=== PATIENT | female | born 1930 | race Two or more races ===

== ENCOUNTER 2017-03-06 06:16 | Inpatient (IN) | payer MEDICARE ==
[~2017-03-06] VITALS: Ht 154.9 cm; Wt 80.2 kg
[2017-03-06] MEDS ORDERED: SODIUM CHLORIDE 0.9% 1,000 ML IV ONE (06:40)
[2017-03-06] MEDS ORDERED: SODIUM CHLORIDE FLUSH 10ML SYR IVF ONE (07:00)
[2017-03-06] MEDS ORDERED: ONDANSETRON 2MG/ML, 2ML IVPush ONE (07:00)
[2017-03-06] MEDS ORDERED: HYDROmorphone 1 MG/ML, 1ML IVPush PRN (07:00)
[2017-03-06] MEDS ORDERED: SODIUM CHLORIDE 0.9% 1,000ML IVBOLUS ONE (07:00)
[2017-03-06] MEDS ORDERED: ONDANSETRON 2MG/ML, 2ML ONE ×2 (07:11→18:11)
[2017-03-06] MEDS ORDERED: HYDROmorphone 1 MG/ML, 1ML ONE (07:11)
[2017-03-06 07:12] LABS: HEMOGLOBIN 16.7 g/dL (11.7-16.4); WHITE BLOOD COUNT 6.9 x10^3/uL (3.4-10)
[2017-03-06 07:23] LABS: ASPARTATE AMINO TRANSFERASE 20 U/L (15-37); BLOOD UREA NITROGEN 34 mg/dL (7-18); IS PT STATUS REG ER OR PRE ER? YES
[2017-03-06] MEDS ORDERED: OMNIPAQUE 350 MG/ML, 100ML BOTTLE ONE (07:58)
[2017-03-06] MEDS ORDERED: OMEP20TA62 PO (08:09)
[2017-03-06] MEDS ORDERED: LOSA25TA5 PO (08:09)
[2017-03-06] MEDS ORDERED: ATEN100T PO (08:09)
[2017-03-06] MEDS ORDERED: ONDANSETRON 2MG/ML, 2ML IVPush PRN ×2 (10:00→19:00)
[2017-03-06] MEDS ORDERED: LABETALOL 5MG/ML, 20ML IVPush PRN (10:00)
[2017-03-06 11:02] VITALS: BP 126/49
[2017-03-06] MEDS: D5%-0.45NACL+KCL 20MEQ 1,000 ML IV SCH ×2 (12:25→23:15)
[2017-03-06] MEDS: morphine SULFATE 10 MG/ML, 1ML IVPush PRN ×2 (13:23→23:23)
[2017-03-06 15:26] VITALS: BP 127/79
[2017-03-06] MEDS ORDERED: MIDAZOLAM 1 MG/ML, 2ML ONE (18:03)
[2017-03-06] MEDS ORDERED: ROCURONIUM 10 MG/ML,10ML ONE (18:05)
[2017-03-06] MEDS ORDERED: SUFentanil 50 MCG/ML, 1ML ONE (18:05)
[2017-03-06] MEDS ORDERED: PROMETHAZINE 25 MG/ML, 1ML ONE (18:07)
[2017-03-06] MEDS ORDERED: ROCURONIUM 10MG/ML,5ML ONE (18:11)
[2017-03-06] MEDS ORDERED: NEOSTIGMINE 1 MG/ML, 10ML ONE (18:11)
[2017-03-06] MEDS ORDERED: PROPOFOL 10 MG/ML, 20ML ONE (18:11)
[2017-03-06] MEDS ORDERED: CEFOTETAN 2 GM ONE (18:11)
[2017-03-06] MEDS ORDERED: DEXAMETHASONE 4 MG/ML, 1ML ONE ×2 (18:11→18:23)
[2017-03-06] MEDS ORDERED: LIDOCAINE-MPF 2% ,5ML ONE (18:11)
[2017-03-06] MEDS ORDERED: EPINEPHRINE 1 MG/ML, 1ML ONE (18:18)
[2017-03-06] MEDS ORDERED: BUPIVACAINE/PF 0.5% ONE (18:18)
[2017-03-06] MEDS ORDERED: BUPIVACAINE/PF-EPI 0.5% 1:200K IM ONE (18:40)
[2017-03-06] MEDS ORDERED: HYDROmorphone 1 MG/ML, 1ML IV PRN (19:00)
[2017-03-06] MEDS ORDERED: ACETAMINOPHEN 325 MG TABLET PO PRN (19:00)
[2017-03-06] MEDS ORDERED: METOCLOPRAMIDE 5 MG/ML, 2ML IV PRN (19:00)
[2017-03-06] MEDS ORDERED: MEPERIDINE/PF 25MG/0.5ML IVPush PRN (19:00)
[2017-03-06] MEDS ORDERED: FENTANYL PF 100 MCG/2ML IV PRN (19:00)
[2017-03-06] MEDS ORDERED: LABETALOL 5MG/ML, 20ML IV PRN (19:00)
[2017-03-06] MEDS ORDERED: OXYcodone 5 MG/5 ML ORAL.SOL UDC PO PRN (19:00)
[2017-03-06] MEDS ORDERED: hydrALAzine 20 MG/ML, 1ML IV PRN (19:00)
[2017-03-06] MEDS: morphine SULFATE 10 MG/ML, 1ML IV PRN ×5 (20:28→21:50)
[2017-03-06 20:33] LABS: CYTOLOGY BODY FLUID RECD INTO PATHOLOGY; CYTOLOGY BODY FLUID SOURCE PERITONEAL FLUID
[2017-03-06] MEDS ORDERED: morphine SULFATE 10 MG/ML, 1ML ONE (20:34)
[2017-03-06] MEDS ORDERED: ADENOSINE 6 MG/2 ML ONE (20:37)
[2017-03-06] MEDS ORDERED: HALOPERIDOL 5 MG/ML ONE (20:40)
[2017-03-06 21:50] VITALS: BP 114/76
[2017-03-06 21:59] VITALS: BP 114/76
[2017-03-07 01:23] VITALS: BP_SYST 107; BP_SYST 128; BP_DIAS 67; BP_DIAS 75
[2017-03-07] MEDS: morphine SULFATE 10 MG/ML, 1ML IVPush PRN (03:29)
[2017-03-07 05:18] LABS: HEMATOCRIT 43.6 % (34.6-47.8); HEMOGLOBIN 14.3 g/dL (11.7-16.4); WHITE BLOOD COUNT 7.8 x10^3/uL (3.4-10)
[2017-03-07 05:19] LABS: BLOOD UREA NITROGEN 22 mg/dL (7-18)
[2017-03-07 05:22] LABS: ASPARTATE AMINO TRANSFERASE 22 U/L (15-37)
[2017-03-07 07:47] VITALS: BP 117/83
[2017-03-07] MEDS: morphine SULFATE 10 MG/ML, 1ML IV PRN ×3 (09:05→18:29)
[2017-03-07 12:45] VITALS: BP 128/81
[2017-03-07] MEDS: SODIUM CHLORIDE 0.9% 1,000 ML IV SCH (15:42)
[2017-03-07 20:58] VITALS: BP 133/85
[2017-03-08] MEDS: morphine SULFATE 10 MG/ML, 1ML IV PRN (00:07)
[2017-03-08 02:15] VITALS: BP 135/77
[2017-03-08 04:54] LABS: HEMATOCRIT 37.8 % (34.6-47.8); HEMOGLOBIN 12.6 g/dL (11.7-16.4); WHITE BLOOD COUNT 6.7 x10^3/uL (3.4-10)
[2017-03-08 05:01] LABS: BLOOD UREA NITROGEN 21 mg/dL (7-18)
[2017-03-08] MEDS: SODIUM CHLORIDE 0.9% 1,000 ML IV SCH ×2 (05:35→19:57)
[2017-03-08 06:40] VITALS: BP 128/75
[2017-03-08] MEDS: ATENOLOL 100 MG TABLET PO SCH (10:10)
[2017-03-08] MEDS: ACETAMINOPHEN 325 MG TABLET PO SCH ×3 (10:10→20:32)
[2017-03-08 12:15] VITALS: BP 114/69
[2017-03-08 20:30] VITALS: BP 153/78
[2017-03-09] MEDS: ACETAMINOPHEN 325 MG TABLET PO SCH ×2 (02:43→10:03)
[2017-03-09] MEDS ORDERED: PNEUMOCOCCAL 23 VACCINE IM-VACC ONE (03:00)
[2017-03-09] MEDS ORDERED: FLU VACC QS2017-18 (36MOS+) UP/PF 0.5 ML IM-VACC ONE (03:30)
[2017-03-09 04:16] VITALS: BP 143/76
[2017-03-09] MEDS: ATENOLOL 100 MG TABLET PO SCH (07:15)
[2017-03-09] MEDS: SODIUM CHLORIDE 0.9% 1,000 ML IV SCH (07:17)
[2017-03-09 07:44] VITALS: BP 133/74
[2017-03-09 12:52] VITALS: BP 127/69
[2017-03-09] MEDS ORDERED: ACET-1600 PO (13:58)
[2017-03-09] MEDS ORDERED: OXYC5CAP2 PO (13:58)
== END 2017-03-09 15:16 | disposition home or self-care (01) | DRG 356 ==
LOC: ED 07:02 → EDIP 09:21 → 4NOR 10:49 → 5SO 22:07 → 4NOR 03-08 23:50 → DCLOUNGE 03-09 14:55
PROVIDERS: ADMIT Internal Medicine; ATTEND Internal Medicine
PROC: 0UB00ZZ Excision of Right Ovary, Open Approach (ICD-10-PCS; 2017-03-06)
PROC: 0WJG4ZZ Inspection of Peritoneal Cavity, Percutaneous Endoscopic Approach (ICD-10-PCS; 2017-03-06)
PROC: 0DBU0ZX Excision of Omentum, Open Approach, Diagnostic (ICD-10-PCS; principal; 2017-03-06 17:30)
DX: K56.52 Intestinal adhesions [bands] with complete obstruction (principal); N17.0 Acute kidney failure with tubular necrosis; E87.2 Acidosis; R18.8 Other ascites; E87.1 Hypo-osmolality and hyponatremia; E86.0 Dehydration; R73.9 Hyperglycemia, unspecified; I11.9 Hypertensive heart disease without heart failure; K21.9 Gastro-esophageal reflux disease without esophagitis; K44.9 Diaphragmatic hernia without obstruction or gangrene; Z96.653 Presence of artificial knee joint, bilateral; K80.20 Calculus of gallbladder without cholecystitis without obstruction; Z82.49 Family history of ischemic heart disease and other diseases of the circulatory system; Z83.3 Family history of diabetes mellitus; Z94.7 Corneal transplant status
CPT/HCPCS: 36415; 74000; 74177; 76700; 80048; 80053; 81003; 82247; 82248; 83605; 83690; 84484; 85025; 86850; 86900; 86923; 87070; 87075; 87205; 88112; 88305; 90686; 90732; 93005; 96361; 96374; 96375; J0171; J1100; J1170; J2250; J2405; J2704; J2710; J3490; Q9967; J2270; J3480; J7030; S0074

== ENCOUNTER → 2019-12-15 | Outpatient (CLI) | payer MEDICARE ==
[~2019-12-15] MED LIST: ACET-1600 PO; ATEN100T PO; LOSA25TA25 PO; OMEP20TA62 PO; OXYC5CAP2 PO
[2019-12-15 09:28] LABS: ALBUMIN 3.7 g/dL (3.4-5.0); ANION GAP 9 mmol/L (5-15); CALCIUM 8.8 mg/dL (8.5-10.1); CHLORIDE 109 mmol/L (98-107)
[2019-12-15 09:53] LABS: ALANINE AMINOTRANSFERASE 16 U/L (12-78); ALKALINE PHOSPHATASE 87 U/L (45-117); BILIRUBIN,TOTAL 0.7 mg/dL (0.2-1.0); CREATININE 0.95 mg/dL (0.55-1.02); FOLATE LEVEL 17.2 ng/mL (3.1-17.5); FREE T4 (FREE THYROXINE) 1.18 ng/dL (0.76-1.46); TOTAL PROTEIN 7.3 g/dL (6.4-8.2)
[2019-12-15 10:15] LABS: MD SCAN; MEAN CORPUSCULAR HEMOGLOBIN 23.8 pg (27.0-34.8); MEAN CORPUSCULAR HGB CONC 31.5 g/dL (32.4-35.8); MEAN CORPUSCULAR VOLUME 75.7 fL (80-100); MEAN PLATELET VOLUME 8.5 fL (7.4-10.4); PLATELET COUNT 278 x10^3/uL (130-400); RED BLOOD COUNT 4.15 x10^6/uL (3.82-5.3); RED CELL DISTRIBUTION WIDTH 17.1 % (9.6-15.2)
[2019-12-15 10:19] LABS: BASOPHILS % (AUTO) 0 % (0-1); EOSINOPHILS % (AUTO) 3 % (1-7); LYMPHOCYTES % (AUTO) 28 % (22-44); MONOCYTES % (AUTO) 12 % (2-9); NEUTROPHILS # (AUTO) 3.35 x10^3/uL (1.8-6.8); NEUTROPHILS % (AUTO) 57 % (42-75)
[2019-12-15 10:20] LABS: EOSINOPHILS # (AUTO) 0.19 x10^3/uL (0-0.4); LYMPHOCYTES # (AUTO) 1.66 x10^3/uL (1-3.4); MONOCYTES # (AUTO) 0.68 x10^3/uL (0.2-0.8)
== END | disposition home or self-care (01) ==
LOC: LAB 08:53
PROVIDERS: ATTEND Internal Medicine
DX: I12.9 Hypertensive chronic kidney disease with stage 1 through stage 4 chronic kidney disease, or unspecified chronic kidney disease (principal); N18.9 Chronic kidney disease, unspecified; R06.02 Shortness of breath; R53.83 Other fatigue; R60.0 Localized edema; R73.03 Prediabetes; R79.89 Other specified abnormal findings of blood chemistry
CPT/HCPCS: 36415; 80053; 82306; 82607; 82728; 82746; 83036; 84439; 84443; 84481; 85025

== ENCOUNTER 2020-07-05 12:02 | Inpatient (IN) | payer MEDICARE ==
[~2020-07-05] VITALS: Ht 157.5 cm; Wt 77.3 kg
[2020-07-05] VITALS (13 sets, daily range): BP systolic 122–173; BP diastolic 74–107
--- NOTE | 2020-07-05 12:04 | NUR ---
CODE NEURO @[id number] PAGED NEURO @ [id number]
[2020-07-05] MEDS ORDERED: OMNIPAQUE 350 MG/ML, 100ML BOTTLE ONE (12:10)
--- NOTE | 2020-07-05 12:27 | NUR ---
THIS IS A 89 YO F BIB EMS FROM HOME W/ C/O SUDDEN ONSET DIZZINESS, LT SIDED WEAKNESS CAUSING PT TO FALL. LT SIDED FACIAL DROOP OBSERVED. LIMITED MOBILITY IN LT SIDED EXTREMITIES. PT ANSWERING QUESTIONS APPROPRIATELY. A&OX4. PT TAKEN STRAIGHT TO CT UPON ARRIVAL. PIV COMMUNICATION CENTER COORDINATOR BY EMS. NO REPORTED INTERVENTIONS COMMUNICATION CENTER COORDINATOR. PT REPORTS ONLY HX IS HTN. PT RETURNED FROM CT W/O INCIDENT. RESTING ON GURNEY. PAINTING TRADES WORKER AT BEDSIDE FOR EKG. AT BEDSIDE.
[2020-07-05 12:34] LABS: BASOPHILS % (AUTO) 1 % (0-1); EOSINOPHILS % (AUTO) 5 % (1-7); LYMPHOCYTES % (AUTO) 34 % (22-44); MEAN CORPUSCULAR HEMOGLOBIN 28.3 pg (27.0-34.8); MEAN CORPUSCULAR HGB CONC 32.6 g/dL (32.4-35.8); MEAN PLATELET VOLUME 8.6 fL (7.4-10.4); MONOCYTES % (AUTO) 10 % (2-9); NEUTROPHILS % (AUTO) 50 % (42-75); PLATELET COUNT 211 x10^3/uL (130-400); RED BLOOD COUNT 4.58 x10^6/uL (3.82-5.3); RED CELL DISTRIBUTION WIDTH 16.1 % (9.6-15.2)
[2020-07-05 12:36] LABS: MD NO
--- NOTE | 2020-07-05 12:48 | NUR ---
REPORT TO ANNETTE SHULTZ
--- NOTE | 2020-07-05 12:55 | NUR ---
PER DR LERMA, HOLD NICARDIPINE AT THIS TIME.
--- NOTE | 2020-07-05 12:56 | NUR ---
DISCUSSION WITH ELI REGARDING KO, NO ORDER AT THIS TIME
[2020-07-05 13:09] LABS: INTERNATIONAL NORMALIZED RATIO 1.1 (0.93-1.1); PROTHROMBIN TIME 11.7 Seconds (9.6-11.5)
--- NOTE | 2020-07-05 13:15 | NUR ---
PT UP ONTO BEDPAN FOR URINE RELIEF. NEW CHUX PLACED UNDER PT.
[2020-07-05] MEDS ORDERED: ALTEPLASE IVPush ONE (13:30)
[2020-07-05] MEDS ORDERED: ALTEPLASE IV ONE (13:30)
[2020-07-05] MEDS ORDERED: ALTEPLASE 6 MG in SYRINGE 1 EA IVPush ONE (13:30)
[2020-07-05] MEDS ORDERED: SODIUM CHLORIDE 0.9% 1,000 ML IV SCH (14:00)
[2020-07-05] MEDS ORDERED: SODIUM CHLORIDE FLUSH 10ML SYR IVF PRN (14:00)
[2020-07-05] MEDS ORDERED: ENALAPRILAT 1.25 MG/ML, 2ML IVPush PRN (14:00)
[2020-07-05] MEDS ORDERED: LABETALOL 5MG/ML, 20ML IVPush PRN (14:00)
[2020-07-05] MEDS ORDERED: OXYcodone IR 5MG TABLET PO PRN (14:00)
[2020-07-05] MEDS ORDERED: ONDANSETRON 2MG/ML, 2ML IVPush PRN (14:00)
[2020-07-05] MEDS ORDERED: POLYETHYLENE GLYCOL 17 GM PACKET PO PRN (14:00)
[2020-07-05] MEDS ORDERED: BISACODYL 10 MG SUPP PR PRN (14:00)
--- NOTE | 2020-07-05 14:26 | NUR ---
DURING TPA, PT REACHING WITH LEFT (WEAK) ARM TO ATTEMPT TO ITCH LEFT SIDE OF FACE AND EAR, WHICH PT COULD NOT PREVIOUSLY FEEL. TRACE BLOOD NOTED ON TEETH, NO NOTABLE HEMORRHAGING SITE.
[2020-07-05] MEDS ORDERED: ATEN50TA41 PO (14:41)
[2020-07-05] MEDS ORDERED: LOSA100T14 PO (14:41)
--- NOTE | 2020-07-05 14:50 | NUR ---
BEDSIDE REPORT GIVEN TO LEXII OLIVAREZ. PT LEFT WEDDING TRANSPORTATION DRIVER BEGINNING TO STRENGTHEN, SHANK TAPPER ALMOST EQUAL. PT CONTINUES TO ILLUSTRATE LEFT SIDED ARM AND LEG DRIFT.
--- NOTE | 2020-07-05 14:57 | NUR ---
IVF INFUSING AT TIME OF TRANSPORT
[2020-07-05] MEDS: ATORVASTATIN 80 MG TABLET PO SCH (21:03)
[2020-07-05] MEDS: ACETAMINOPHEN 325 MG TABLET PO PRN (21:04)
[2020-07-06] VITALS (8 sets, daily range): BP systolic 146–167; BP diastolic 74–97
[2020-07-06 04:28] LABS: BASOPHILS % (AUTO) 1 % (0-1); EOSINOPHILS % (AUTO) 3 % (1-7); LYMPHOCYTES % (AUTO) 27 % (22-44); MEAN CORPUSCULAR HEMOGLOBIN 28.3 pg (27.0-34.8); MEAN CORPUSCULAR HGB CONC 32.6 g/dL (32.4-35.8); MEAN PLATELET VOLUME 8.3 fL (7.4-10.4); MONOCYTES % (AUTO) 12 % (2-9); NEUTROPHILS % (AUTO) 58 % (42-75); PLATELET COUNT 201 x10^3/uL (130-400); RED BLOOD COUNT 4.48 x10^6/uL (3.82-5.3)
[2020-07-06 04:29] LABS: MD NO
[2020-07-06 04:37] LABS: ALANINE AMINOTRANSFERASE 33 U/L (12-78); ALBUMIN 3.3 g/dL (3.4-5.0); ANION GAP 6 mmol/L (5-15); CALCIUM 8.3 mg/dL (8.5-10.1); CHLORIDE 110 mmol/L (98-107); CHOLESTEROL, TOTAL 158 mg/dL (140-239); CREATININE 0.98 mg/dL (0.55-1.02)
[2020-07-06 04:39] LABS: ALKALINE PHOSPHATASE 121 U/L (45-117); BILIRUBIN,TOTAL 0.8 mg/dL (0.2-1.0); CHOL/HDL RATIO 3.5; HDL CHOL % 28 % (28-40); HDL CHOLESTEROL (DIRECT) 45 mg/dL (40-60); LDL CHOLESTEROL,CALCULATED 101 mg/dL (54-169); LDL/HDL RATIO 2.2 (0.5-3.0); TOTAL PROTEIN 6.8 g/dL (6.4-8.2); TRIGLYCERIDES 58 mg/dL (50-200); VLDL CHOLESTEROL 12 mg/dL (0-25)
[2020-07-06] MEDS: SENNA/DOCUSATE TABLET PO SCH (09:00)
[2020-07-06] MEDS: OMEPRAZOLE 20 MG CAPSULE.DR PO SCH (09:42)
[2020-07-06] MEDS: LOSARTAN 100 MG TAB PO SCH (09:42)
[2020-07-06] MEDS: ATENOLOL 50 MG TABLET PO SCH (09:42)
[2020-07-06] MEDS: ACETAMINOPHEN 325 MG TABLET PO PRN (20:33)
[2020-07-06] MEDS: ATORVASTATIN 80 MG TABLET PO SCH (20:33)
[2020-07-07 04:19] VITALS: BP 162/82
[2020-07-07 05:10] VITALS: BP 156/102
[2020-07-07] MEDS ORDERED: ENALAPRILAT 1.25 MG/ML, 1ML ONE (06:38)
[2020-07-07 06:49] VITALS: BP 162/106
[2020-07-07] MEDS: OMEPRAZOLE 20 MG CAPSULE.DR PO SCH (08:22)
[2020-07-07] MEDS: LOSARTAN 100 MG TAB PO SCH (08:22)
[2020-07-07] MEDS: ATENOLOL 50 MG TABLET PO SCH (08:22)
[2020-07-07] MEDS: SENNA/DOCUSATE TABLET PO SCH (08:24)
[2020-07-07 10:17] VITALS: BP 130/84
[2020-07-07 11:40] VITALS: BP 128/70
[2020-07-07] MEDS ORDERED: RIVAROXABAN 15 MG TABLET PO SCH (17:00)
[2020-07-07 20:03] VITALS: BP 123/67
[2020-07-07] MEDS: ATORVASTATIN 80 MG TABLET PO SCH (20:40)
[2020-07-08 02:00] VITALS: BP 129/74
[2020-07-08] MEDS: OMEPRAZOLE 20 MG CAPSULE.DR PO SCH (05:33)
[2020-07-08 08:16] VITALS: BP 156/87
[2020-07-08] MEDS: SENNA/DOCUSATE TABLET PO SCH (09:27)
[2020-07-08] MEDS: LOSARTAN 100 MG TAB PO SCH (09:29)
[2020-07-08] MEDS: ATENOLOL 50 MG TABLET PO SCH (09:30)
[2020-07-08 12:48] VITALS: BP 148/79
[2020-07-08] MEDS ORDERED: ATOR-2 PO (13:50)
[2020-07-08] MEDS ORDERED: RIVA15TA PO (13:50)
== END 2020-07-08 15:36 | DRG 62 ==
LOC: ED 14:10 → EDIP 14:13 → CCU 14:58 → 4EST 07-07 04:52
PROVIDERS: ADMIT Internal Medicine; ATTEND Internal Medicine
DX: I63.531 Cerebral infarction due to unspecified occlusion or stenosis of right posterior cerebral artery (principal); G81.94 Hemiplegia, unspecified affecting left nondominant side; D68.69 Other thrombophilia; R41.4 Neurologic neglect syndrome; I50.22 Chronic systolic (congestive) heart failure; I63.511 Cerebral infarction due to unspecified occlusion or stenosis of right middle cerebral artery; I48.91 Unspecified atrial fibrillation; I08.0 Rheumatic disorders of both mitral and aortic valves; I11.0 Hypertensive heart disease with heart failure; I27.20 Pulmonary hypertension, unspecified; K21.9 Gastro-esophageal reflux disease without esophagitis; R29.810 Facial weakness; Z82.49 Family history of ischemic heart disease and other diseases of the circulatory system; Z83.3 Family history of diabetes mellitus; R29.711 NIHSS score 11
CPT/HCPCS: 36415; 37195; 70450; 70496; 70498; 70551; 80047; 80053; 80061; 82962; 84443; 85025; 85610; 85730; 87081; 93005; 93306; G0378; J2997; Q9967; J7030

== ENCOUNTER → 2020-08-04 | Outpatient (CLI) | payer MEDICARE ==
[~2020-08-04] MED LIST changes: +ATEN50TA41 PO; +ATOR-2 PO; +LOSA100T14 PO; +RIVA15TA PO
[2020-08-04 13:18] LABS: ALBUMIN 3.3 g/dL (3.4-5.0); ANION GAP 6 mmol/L (5-15); CALCIUM 9.2 mg/dL (8.5-10.1); CHLORIDE 105 mmol/L (98-107); INTERNATIONAL NORMALIZED RATIO 1.07 (0.93-1.1); PROTHROMBIN TIME 11.4 Seconds (9.6-11.5)
[2020-08-04 13:21] LABS: ALANINE AMINOTRANSFERASE 51 U/L (12-78); ALKALINE PHOSPHATASE 401 U/L (45-117); BILIRUBIN,TOTAL 0.9 mg/dL (0.2-1.0); CREATININE 0.83 mg/dL (0.55-1.02); TOTAL PROTEIN 7.1 g/dL (6.4-8.2)
== END | disposition home or self-care (01) ==
LOC: LAB 12:46
PROVIDERS: ATTEND Internal Medicine
DX: I48.91 Unspecified atrial fibrillation (principal); E87.1 Hypo-osmolality and hyponatremia
CPT/HCPCS: 36415; 80053; 85610; 85730

== ENCOUNTER 2020-08-19 07:33 | Day surgery (SDC) | payer MEDICARE ==
[~2020-08-19] VITALS: Ht 157.5 cm; Wt 69.6 kg
[2020-08-19 08:01] VITALS: BP 130/90
[2020-08-19 08:38] LABS: INTERNATIONAL NORMALIZED RATIO 1.39 (0.93-1.1); PROTHROMBIN TIME 14.8 Seconds (9.6-11.5)
[2020-08-19] MEDS ORDERED: NALOXONE 1 MG/ML, 2ML ONE (09:09)
[2020-08-19] MEDS ORDERED: FENTANYL PF 100 MCG/2ML ONE (09:09)
[2020-08-19] MEDS ORDERED: FLUMAZENIL 0.1 MG/1 ML, 5ML ONE (09:09)
[2020-08-19] MEDS ORDERED: MIDAZOLAM 1 MG/ML, 5ML ONE (09:09)
[2020-08-19] MEDS ORDERED: OMNIPAQUE 350 MG/ML, 100ML BOTTLE ONE (10:20)
== END 2020-08-19 14:25 | disposition home or self-care (01) ==
LOC: OUT 07:33
PROVIDERS: ATTEND Internal Medicine Gastroenterology
DX: R19.09 Other intra-abdominal and pelvic swelling, mass and lump (principal); C25.0 Malignant neoplasm of head of pancreas; K83.1 Obstruction of bile duct; I11.0 Hypertensive heart disease with heart failure; I50.20 Unspecified systolic (congestive) heart failure; I48.20 Chronic atrial fibrillation, unspecified; I27.20 Pulmonary hypertension, unspecified; I69.354 Hemiplegia and hemiparesis following cerebral infarction affecting left non-dominant side; Z79.01 Long term (current) use of anticoagulants; Z79.891 Long term (current) use of opiate analgesic; Z79.899 Other long term (current) drug therapy; Z99.3 Dependence on wheelchair
CPT/HCPCS: 36415; 48102; 74175; 77012; 85610; 88307; 88333; 99156; 99157; J2250; J3010; Q9967; J2310

== ENCOUNTER 2020-09-04 15:35 | Emergency (ER) | payer MEDICARE ==
[~2020-09-04] VITALS: Ht 157.5 cm; Wt 71.2 kg
--- NOTE | 2020-09-04 16:24 | NUR ---
ERMD AT BEDSIDE FOR EVALUATION.
[2020-09-04] MEDS ORDERED: SODIUM CHLORIDE FLUSH 10ML SYR IVF ONE (16:30)
--- NOTE | 2020-09-04 16:33 | NUR ---
PATIENT WHEELED BACK FROM TRIAGE WITH CHIEF C/O OF HIGH INR, PATIENT REFERRED TO ED BY [facility]. NADN, LALITAS, DAUGHTER AT BEDSIDE, CALL LIGHT WITHIN REACH.
--- NOTE | 2020-09-04 16:57 | NUR ---
20 GAUGE IV STARTED RIGHT AC, BLOOD COLLECTED, LABELLED AND GIVEN TO WEBSITE OPTIMIZATION STRATEGIST.
[2020-09-04 17:03] LABS: BASOPHILS % (AUTO) 1 % (0-1); EOSINOPHILS % (AUTO) 3 % (1-7); LYMPHOCYTES % (AUTO) 11 % (22-44); MEAN CORPUSCULAR HEMOGLOBIN 28.9 pg (27.0-34.8); MEAN CORPUSCULAR HGB CONC 33.7 g/dL (32.4-35.8); MEAN PLATELET VOLUME 8.6 fL (7.4-10.4); MONOCYTES % (AUTO) 9 % (2-9); NEUTROPHILS % (AUTO) 76 % (42-75); PLATELET COUNT 234 x10^3/uL (130-400); RED BLOOD COUNT 4.67 x10^6/uL (3.82-5.3); RED CELL DISTRIBUTION WIDTH 17.7 % (9.6-15.2)
[2020-09-04 17:08] LABS: MD NO
[2020-09-04 17:13] LABS: ALANINE AMINOTRANSFERASE 225 U/L (12-78); ALBUMIN 2.7 g/dL (3.4-5.0); ANION GAP 9 mmol/L (5-15); CALCIUM 8.5 mg/dL (8.5-10.1); CHLORIDE 105 mmol/L (98-107); CREATININE 0.51 mg/dL (0.55-1.02)
[2020-09-04 17:15] LABS: ALKALINE PHOSPHATASE 943 U/L (45-117); BILIRUBIN,TOTAL 5.2 mg/dL (0.2-1.0); TOTAL PROTEIN 6.7 g/dL (6.4-8.2)
--- NOTE | 2020-09-04 17:49 | NUR ---
PATIENT RESTING IN JASWANT GUILLERMO, RODERICK, DAUGHTER AT BEDSIDE, CALL LIGHT WITHIN REACH. WAITING FOR ALL LAB RESULTS.
[2020-09-04 18:26] LABS: PARTIAL THROMBOPLASTIN TIME 58 Seconds (25-31)
[2020-09-04 18:32] LABS: INTERNATIONAL NORMALIZED RATIO > 8.00 (0.93-1.1); PROTHROMBIN TIME > 84.0 Seconds (9.6-11.5)
--- NOTE | 2020-09-04 18:34 | NUR ---
LAB CALLED TO REPORT CRITICAL PT/INR VALUES AT >84 AND >8, ERMD NOTIFIED.
--- NOTE | 2020-09-04 18:39 | NUR ---
ERMD AT BEDSIDE TO DISCUSS POC.
--- NOTE | 2020-09-04 18:55 | NUR ---
REPORT FROM FREDY SHULTZ
[2020-09-04] MEDS ORDERED: PHYTONADIONE 5 MG TABLET PO ONE (19:00)
[2020-09-04 19:08] VITALS: BP 140/69
--- NOTE | 2020-09-04 19:26 | NUR ---
Patient given discharge instructions and they have confirmed that they understand the instructions. Patient to d/c desk via wheelchair
== END 2020-09-04 19:27 | disposition home or self-care (01) ==
LOC: ED 17:01
DX: I48.20 Chronic atrial fibrillation, unspecified (principal); K72.00 Acute and subacute hepatic failure without coma; C25.9 Malignant neoplasm of pancreas, unspecified; Z79.01 Long term (current) use of anticoagulants
CPT/HCPCS: 36415; 80053; 83690; 85025; 85610; 85730; 93005; 99284